=== PATIENT | female | born 1995 | race African-American/Black ===

== ENCOUNTER 2023-09-05 22:23 | Emergency (ER) | payer MEDICAID, OTHER ==
[~2023-09-05] VITALS: Ht 170.2 cm; Wt 58.0 kg
[2023-09-05 22:26] VITALS: O2SAT 100
[2023-09-05] MEDS: LIDOCAINE HCL/EPINEPHRINE 1%-EPI 1:100,000 20 ML VIAL INFIL NR (22:45)
[2023-09-05] MEDS ORDERED: LIDOCAINE HCL/EPINEPHRINE 1%-EPI 1:100,000 50 ML VIAL INFIL ONE (22:45)
[2023-09-05] MEDS: OXYCODONE HCL 5MG TABLET PO ONE (22:45)
[2023-09-05] MEDS: CEPHALEXIN 250MG CAPSULE PO ONE (22:45)
[2023-09-05] MEDS: TETANUS, DIPHTHERIA, PERTUSSIS VAC/PF 0.5ML (>10YR OLD) IM ONE (22:45)
[2023-09-06 00:42] LABS: BASOPHILS % 0.3 % (0.0-2.0); EOSINOPHILS % 0.2 % (0.0-5.0); HEMATOCRIT. 34.4 % (36.0-48.0); HEMOGLOBIN. 11.8 g/dL (12.0-16.0); LYMPHOCYTES % 11.8 % (20.0-50.0); MEAN CORPUSCULAR HEMOGLOBIN 31.9 pg (28.0-32.0); MEAN CORPUSCULAR HGB CONC 34.2 g/dL (31.0-37.0); MEAN PLATELET VOLUME 7.9 fl (7.4-10.4); MONOCYTES % 5.1 % (2.0-8.0); NEUTROPHILS % 82.6 % (40.0-76.0); PLATELET 194 x1000/uL (130-400); RED BLOOD CELL COUNT 3.69 mill/uL (4.2-5.4); RED CELL DISTRIBUTION WIDTH 13.7 % (11.6-14.6); WHITE BLOOD COUNT 7.5 x1000/uL (4.5-11.0)
[2023-09-06] MEDS: MORPHINE SULFATE 4 MG/ML INJ (FOR IV/IM USE) IV STA (01:08)
[2023-09-06] MEDS: METOCLOPRAMIDE HCL 10MG/2ML VIAL IV ONE (01:08)
[2023-09-06] MEDS: CEFAZOLIN 1000MG PREMIX 50 ML IV ONE (01:21)
[2023-09-06] MEDS: SODIUM CHLORIDE 0.9% 1,000 ML IV ONE (01:21)
[2023-09-06 02:42] LABS: ALANINE AMINOTRANSFERASE < 7 IU/L (10-49); ALBUMIN 4.1 g/dL (3.2-4.8); ASPARTATE AMINOTRANSFERASE 18 IU/L (<34); BILIRUBIN TOTAL 0.3 mg/dL (0.1-1.0); CALCIUM 8.5 mg/dL (8.7-10.4); CARBON DIOXIDE 23 mEq/L (21-32); CHLORIDE 108 mEq/L (98-107); CREATININE 1.1 mg/dL (0.6-1.0); ETHANOL BLOOD < 10 mg/dL (<10); GLUCOSE 100 mg/dL (70-105); POTASSIUM 3.9 mEq/L (3.5-5.1); PROTEIN TOTAL 6.6 g/dL (6.0-8.3); SODIUM 139 mEq/L (136-145); UREA NITROGEN BLOOD 17 mg/dL (9-23)
[2023-09-06] MEDS: MORPHINE SULFATE 4 MG/ML INJ (FOR IV/IM USE) IV ONE (04:49)
[2023-09-06] MEDS ORDERED: ACET-2708 MT (07:50)
[2023-09-06] MEDS ORDERED: AMOX1TAB16 MT (07:51)
[2023-09-06] MEDS ORDERED: HYDR-4001 MT (07:51)
[2023-09-06] MEDS ORDERED: OXYC-100 MT (07:58)
[2023-09-06] MEDS: HYDROCODONE/ACETAMINOPHEN 5/325MG TABLET PO ONE (08:00)
[2023-09-06 08:05] VITALS: BP 116/64; PULSE 65; RESP 17; TEMP 98.6
== END 2023-09-06 08:07 | disposition home or self-care (01) ==
LOC: ER 22:23
DX: S02.85XA Fracture of orbit, unspecified, initial encounter for closed fracture (principal); S01.81XA Laceration without foreign body of other part of head, initial encounter; G89.11 Acute pain due to trauma; G93.89 Other specified disorders of brain; Y08.89XA Assault by other specified means, initial encounter; Y93.89 Activity, other specified; Y92.89 Other specified places as the place of occurrence of the external cause; Y99.8 Other external cause status
CPT/HCPCS: 81025; 36415; 70450; 70486; 90715; 12015; 90471; 99291; 80053; 80320; 85025; 85610; 86850; 86900; 86901; 96365; 96375; 96376; J3490; J0690; J2765; J2270; J7030; G0480